=== PATIENT | female | born 1940 | race Caucasian/White ===

== ENCOUNTER 2019-08-04 13:27 | Emergency (ER) | payer MEDICARE, OTHER ==
--- NOTE | 2019-08-04 14:17 | ED ---
Lower Extremity - HPI Summary HPI Summary: This patient is a 79 year old F with a history of 3x meniscus surgery in the right knee presenting to ED with a chief complaint of right knee pain just below the knee since this last night. Patient has had increased problems with her arthritis in the last year. Patient had physical therapy for her knee last night, and she felt pain off and on during the therapy, particularly while standing up. She states the knee feels weak, like she is going to fall, and also reports that she felt popping in the knee during the PT session. She denies falling. This morning, patient reports having trouble getting out of bed. The patient rates the pain 0/10 in severity while lying on the stretcher. Symptoms aggravated by movement. Symptoms alleviated by nothing. Patient denies fever. - History of Current Complaint Chief Complaint: EDExtremityLower Stated Complaint: RIGHT KNEE PAIN Time Seen by Provider: 08/04/19 13:37 Hx Obtained From: Patient Onset of Pain: Hours - Last night Onset/Duration: Hours - Since last night Severity Initially: Mild Severity Currently: Mild Pain Intensity: 0 Pain Scale Used: 0-10 Numeric Timing: Constant, Lasting Hours - Since last night Location: Is Discrete @ - R knee Associated Signs And Symptoms: Negative: Fever Aggravating Factor(s): Movement Alleviating Factor(s): Nothing - Allergies/Home Medications Allergies/Adverse Reactions: Allergies Allergy/AdvReac Type Severity Reaction Status Date / Time No Known Allergies Allergy Verified 08/04/19 13:30 Home Medications: Home Medications Atorvastatin* [Lipitor*] 10 mg PO EVERY OTHER DAY 08/04/19 [History Confirmed ] Losartan TAB* [Cozaar TAB*] 100 mg PO DAILY 08/04/19 [History Confirmed 08/04/19 ] NIFEdipine ER TAB* [Procardia Xl TAB*] 30 mg PO DAILY 08/04/19 [History Confirmed 08/04/19] Spironolactone TAB* [Aldactone TAB*] 25 mg PO DAILY 08/04/19 [History Confirmed 08/04/19] PMH/Surg Hx/FS Hx/Imm Hx Cardiovascular History: Reports: Hx Hypercholesterolemia, Hx Hypertension Respiratory History: Reports: Hx Asthma GI History: Reports: Hx Gastroesophageal Reflux Disease Musculoskeletal History: Reports: Hx Arthritis - Cancer History Hx Chemotherapy: No Hx Radiation Therapy: No - Surgical History Surgery Procedure, Year, and Place: Nephrectomy. Left knee arthroscopy. 3x meniscus surgery in the right knee Infectious Disease History: No Infectious Disease History: Denies: Traveled Outside the [place] in Last 30 Days - Family History Known Family History: Positive: Cardiac Disease - Father had CAD, Other - Mother had breast CA - Social History Alcohol Use: Rare Hx Substance Use: No Substance Use Type: Reports: None Hx Tobacco Use: No Smoking Status (MU): Never Smoked Tobacco Review of Systems Negative: Fever Musculoskeletal: Other - Right knee pain All Other Systems Reviewed And Are Negative: Yes Physical Exam - Summary Physical Exam Summary: Constitutional: Well-developed, Well-nourished, Alert. (-) Distressed Skin: Warm, Dry HENT: Normocephalic; Atraumatic Eyes: Conjunctiva normal Neck: Musculoskeletal ROM normal neck. (-) JVD, (-) Stridor, (-) Tracheal deviation Cardio: Rhythm regular, rate normal, Heart sounds normal; Intact distal pulses; The pedal pulses are 2+ and symmetric. Radial pulses are 2+ and symmetric. Pulmonary/Chest wall: Effort normal. (-) Respiratory distress, (-) Wheezes, (-) Rales Abd: Soft, (-) tenderness, (-) Distension, (-) Guarding, (-) Rebound Musculoskeletal: Bony tenderness just at the base of the right patella and it tracks down to the proximal mid-tibia. The right patella does not seem to be high-riding, it seems to be lying in the same point symmetrically with the other leg. Valgus and varus stress on the right knee cause pain. Flexion and extension cause pain. I do not appreciate laxity, and she has ROM intact, but ranging passively and actively causes discomfort. Neuro: Alert, Oriented x3 Psych: Mood and affect Normal Triage Information Reviewed: Yes Vital Signs On Initial Exam: Initial Vitals Temp Pulse Resp BP Pulse Ox 98.3 F 86 18 173/99 96 08/04/19 13:27 08/04/19 13:27 08/04/19 13:27 08/04/19 13:27 08/04/19 13:27 Vital Signs Reviewed: Yes Procedures - Sedation Patient Received Moderate/Deep Sedation with Procedure: No Diagnostics - Vital Signs Vital Signs Temp Pulse Resp BP Pulse Ox 08/04/19 13:27 98.3 F 86 18 173/99 96 - Laboratory Lab Statement: Any lab studies that have been ordered have been reviewed, and results considered in the medical decision making process. - Radiology R knee XR Radiology Interpretation Completed By: Radiologist Summary of Radiographic Findings: #. Advanced osteoarthritis with only mild progression compared with the 2006 radiographs. #. Small joint effusion. No fracture evident. Dr. Corado has reviewed this radiology report. Re-Evaluation - Re-Evaluation First Eval Re-Evaluation Time: 15:09 Comment: Discussed results with patient. Told patient about my plan for use of knee immobilizer, but I am okay if the patient uses a wheelchair instead. Patient called her ortho and now has an appointment with Dr. Tim for tomorrow morning. Patient will be discharged home with dx of right knee sprain. Patient understands and agrees with this plan. Lower Extremity Course/Dx - Course Course Of Treatment: This patient is a 79 year old F with a history of 3x meniscus surgery in the right knee presenting to ED with a chief complaint of right knee pain just below the knee since this last night. R knee XR revealed # . Advanced osteoarthritis with only mild progression compared with the 2006 radiographs. #. Small joint effusion. No fracture evident. I will give the patient a knee immobilizer, but if she would prefer to use a wheelchair as she has chronic shoulder issues and has difficulty using crutches, I am comfortable with her removing the Velcro knee immobilizer. Patient will be discharged home with dx of right knee strain. Patient understands and agrees with this plan. Patient called their ortho and has an appt with Dr. Tim tomorrow at 0945. - Diagnoses Provider Diagnoses: Strain of right knee Discharge ED - Sign-Out/Discharge Documenting (check all that apply): Patient Departure - Discharge - Discharge Plan Condition: Stable Disposition: HOME Patient Education Materials: Knee Pain (ED), Knee Immobilizer (ED) Referrals: Leticia Barrientos MD [Primary Care Provider] - - Billing Disposition and Condition Condition: STABLE Disposition: Home - Attestation Statements Document Initiated by Scribe: Yes Documenting Scribe: Calos Joe Provider For Whom Scribe is Documenting (Include Credential): Geovanni Corado MD Scribe Attestation: I, Calos Joe, scribed for Geovanni Corado MD on 08/04/19 at 1905. Scribe Documentation Reviewed: Yes Provider Attestation: The documentation as recorded by the scribe, Calos Joe accurately reflects the service I personally performed and the decisions made by me, Geovanni Corado MD Status of Scribe Document: Viewed
[2019-08-04 15:35] VITALS: BP 154/78
== END 2019-08-04 15:35 | disposition home or self-care (01) ==
LOC: ED 13:27
DX: S86.811A Strain of other muscle(s) and tendon(s) at lower leg level, right leg, initial encounter (principal); M17.11 Unilateral primary osteoarthritis, right knee; X58.XXXA Exposure to other specified factors, initial encounter; Y92.9 Unspecified place or not applicable; E78.00 Pure hypercholesterolemia, unspecified; I10 Essential (primary) hypertension; J45.909 Unspecified asthma, uncomplicated; K21.9 Gastro-esophageal reflux disease without esophagitis; Z79.899 Other long term (current) drug therapy
CPT/HCPCS: 99282

== ENCOUNTER 2021-07-16 06:32 | Observation (INO) ==
[~2021-07-16 06:32] MED LIST: Buffered Lidocaine 1% SYRIN 1 ml INTRADERM ONE; Bupivacaine 0.5% SDV PF 30ML VIAL ONE; Dexamethasone IV 4 MG/ML VIAL 1 ml VIAL ONE; Lactated Ringers 1000 ml BAG 1,000 ML IV SCH; fentaNYL 100 mcg/2 ml 50 MCG/ML VIAL ONE
[2021-07-16] MEDS ORDERED: ceFAZolin 2 GM in NS PREMIX 2 GM/100 ML BAG IVPB ONE (06:43)
[2021-07-16] MEDS ORDERED: Ropivacaine 5 MG/ML 20 ML VIAL 0.5% (100 MG) ONE (07:01)
[2021-07-16] MEDS ORDERED: Rocuronium 50 mg VIAL 10 mg/ml 5 ml VIAL (50 mg) ONE (07:29)
[2021-07-16] MEDS ORDERED: fentaNYL 250 mcg/5 ml 50 MCG/ML 5 ml VIAL (250 MCG) ONE (07:29)
[2021-07-16] MEDS ORDERED: Lidocaine 2% PF 5 ML VIAL ONE (07:29)
[2021-07-16] MEDS ORDERED: Ondansetron 4 mg VIAL 2 MG/ML 2 ml VIAL ONE (07:29)
[2021-07-16] MEDS ORDERED: Dexamethasone IV 4 MG/ML VIAL 1 ml VIAL ONE (07:29)
[2021-07-16] MEDS ORDERED: Propofol 10 MG/ML 20 ML BTL ONE (07:29)
[2021-07-16] MEDS ORDERED: Lidocaine 1% MPF 5 ML VIAL ONE (08:00)
[2021-07-16] MEDS ORDERED: diPHENhydraMINE IV 50 MG/ML 1 ml VIAL (BENADRYL) IV PRN ×2 (08:32→08:55)
[2021-07-16] MEDS ORDERED: Naloxone 0.4 mg VIAL 0.4 mg/ml 1 ml VIAL IV PRN (08:32)
[2021-07-16] MEDS ORDERED: DiMENhydriNATE IV 50 mg/ml 1 ml VIAL IV PUSH PRN (08:32)
[2021-07-16] MEDS ORDERED: Phenylephrine 40 mcg/mL 10mL (400mcg) SYRINGE ONE (08:37)
[2021-07-16] MEDS ORDERED: Ondansetron 4 mg VIAL 2 MG/ML 2 ml VIAL IV PRN (08:55)
[2021-07-16] MEDS ORDERED: Morphine 2 MG/ML SYRINGE IV PRN (08:55)
[2021-07-16] MEDS ORDERED: Ondansetron ODT 4 mg TAB 4 MG TAB PO PRN (08:55)
[2021-07-16] MEDS ORDERED: Magnesium Hydroxide LIQ 30 ML UDC PO PRN (08:55)
[2021-07-16] MEDS ORDERED: Lactulose 30 ml UDC PO PRN (08:55)
[2021-07-16] MEDS ORDERED: diPHENhydraMINE 25 mg TAB PO PRN (08:55)
[2021-07-16] MEDS ORDERED: Lactated Ringers 1000 ml BAG 1,000 ML IV SCH (09:00)
[2021-07-16] MEDS ORDERED: EPHEDrine (Pressors) 50 MG/ML VIAL ONE (09:06)
[2021-07-16] MEDS ORDERED: HYDROmorphone 1 MG/1 ML SYRINGE ONE ×2 (09:31→10:58)
[2021-07-16] MEDS: HYDROmorphone 1 MG/1 ML SYRINGE IV PRN ×5 (11:08→12:03)
[2021-07-16] MEDS: Vitamin THERAPEUTIC TAB PO SCH (14:00)
[2021-07-16] MEDS: Magnesium Hydroxide LIQ 30 ML UDC PO SCH ×2 (14:00→20:25)
[2021-07-16] MEDS: ceFAZolin 1 GM ADVAN 1 GM in NS 0.9% 50 ML 50 ML IVPB SCH ×2 (16:47→23:58)
[2021-07-17 06:37] LABS: Hematocrit 28 % (35-47); Hemoglobin 9.3 g/dL (12.0-16.0); Mean Platelet Volume 9.6 fL (7.4-10.4); Platelet Count 173 10^3/uL (150-450)
[2021-07-17 07:05] LABS: Calcium 9.6 mg/dL (8.6-10.3); Potassium 4.5 mmol/L (3.5-5.0)
[2021-07-17] MEDS: ceFAZolin 1 GM ADVAN 1 GM in NS 0.9% 50 ML 50 ML IVPB SCH (08:52)
[2021-07-17] MEDS: Magnesium Hydroxide LIQ 30 ML UDC PO SCH ×2 (08:52→21:12)
[2021-07-17] MEDS: Vitamin THERAPEUTIC TAB PO SCH (08:53)
[2021-07-17] MEDS ORDERED: Flu vaccine *QUAD* 2021-22* 0.5 ML SYRINGE IM ONE (09:00)
[2021-07-18 07:02] LABS: Hematocrit 32 % (35-47); Hemoglobin 10.6 g/dL (12.0-16.0); Mean Platelet Volume 9.6 fL (7.4-10.4); Platelet Count 177 10^3/uL (150-450)
[2021-07-18] MEDS: Vitamin THERAPEUTIC TAB PO SCH (08:06)
[2021-07-18] MEDS: Magnesium Hydroxide LIQ 30 ML UDC PO SCH ×3 (08:06→21:34)
[2021-07-19 06:22] LABS: Hematocrit 29 % (35-47); Mean Platelet Volume 9.7 fL (7.4-10.4); Platelet Count 173 10^3/uL (150-450)
[2021-07-19] MEDS: Vitamin THERAPEUTIC TAB PO SCH (10:19)
[2021-07-19] MEDS: Magnesium Hydroxide LIQ 30 ML UDC PO SCH (10:21)
[2021-07-19 16:49] VITALS: BP 144/78
== END 2021-07-19 17:57 | disposition home or self-care (01) ==
LOC: OR 06:32 → SSU 06:32
PROVIDERS: ADMIT Orthopaedic Surgery Adult Reconstructive Orthopaedic Surgery; ATTEND Orthopaedic Surgery Adult Reconstructive Orthopaedic Surgery

== ENCOUNTER 2021-07-19 17:22 | Inpatient (IN) ==
[2021-07-22 17:16] LABS: Rapid COVID-19 Molecular Undetected (Undetected)
[2021-07-23 07:17] VITALS: BP 122/64
== END 2021-07-23 13:45 | disposition home or self-care (01) | DRG 561 ==
LOC: MCHPEDS 18:00
PROVIDERS: ADMIT Orthopaedic Surgery Adult Reconstructive Orthopaedic Surgery; ATTEND Orthopaedic Surgery Adult Reconstructive Orthopaedic Surgery

== ENCOUNTER 2021-12-26 10:18 | Observation (INO) ==
[~2021-12-26 10:18] MED LIST changes: -Bupivacaine 0.5% SDV PF 30ML VIAL ONE; -Dexamethasone IV 4 MG/ML VIAL 1 ml VIAL ONE; +HYDROmorphone 1 MG/1 ML SYRINGE IV PRN; +Ketamine HCL 50 mg/ml 10 ml VIAL (500 MG) ONE; +Lidocaine 2% PF 5 ML VIAL ONE; +Naloxone 0.4 mg VIAL 0.4 mg/ml 1 ml VIAL IV PRN; +Prochlorperazine 5 mg/ml 2 ml VIAL (10 mg) IV PRN; +Propofol 10 MG/ML 20 ML BTL ONE; +diPHENhydraMINE IV 50 MG/ML 1 ml VIAL (BENADRYL) IV PRN; -fentaNYL 100 mcg/2 ml 50 MCG/ML VIAL ONE
[2021-12-26] MEDS ORDERED: ceFAZolin 2 GM in NS PREMIX 2 GM/100 ML BAG IVPB ONE (10:41)
[2021-12-26] MEDS ORDERED: ROPIVACAINE 5 MG/ML 30 ML BTL (0.5%) ONE ×2 (11:37→13:23)
[2021-12-26] MEDS ORDERED: fentaNYL 250 mcg/5 ml 50 MCG/ML 5 ml VIAL (250 MCG) ONE (11:49)
[2021-12-26] MEDS ORDERED: Phenylephrine 40 mcg/mL 10mL (400mcg) SYRINGE ONE (13:13)
[2021-12-26] MEDS ORDERED: Propofol 10 MG/ML 20 ML BTL ONE (13:52)
[2021-12-26] MEDS ORDERED: Lactulose 30 ml UDC PO PRN (13:53)
[2021-12-26] MEDS ORDERED: Ondansetron 4 mg VIAL 2 MG/ML 2 ml VIAL IV PRN (13:53)
[2021-12-26] MEDS ORDERED: Ondansetron ODT 4 mg TAB 4 MG TAB PO PRN (13:53)
[2021-12-26] MEDS ORDERED: diPHENhydraMINE 25 mg TAB PO PRN (13:53)
[2021-12-26] MEDS ORDERED: Morphine 2 MG/ML SYRINGE IV PRN (13:53)
[2021-12-26] MEDS ORDERED: diPHENhydraMINE IV 50 MG/ML 1 ml VIAL (BENADRYL) IV PRN (13:53)
[2021-12-26] MEDS ORDERED: Magnesium Hydroxide LIQ 30 ML UDC PO PRN (13:53)
[2021-12-26] MEDS ORDERED: ceFAZolin 1 GM ADVAN 1 GM in NS 0.9% 50 ML 50 ML IVPB SCH (14:00)
[2021-12-26] MEDS: Lactated Ringers 1000 ml BAG 1,000 ML IV SCH (17:29)
[2021-12-26] MEDS: Magnesium Hydroxide LIQ 30 ML UDC PO SCH (19:55)
[2021-12-26] MEDS: ceFAZolin VIAL 1 GM in NS 0.9% 50 ML 50 ML IVPB SCH (23:47)
[2021-12-27] MEDS: ceFAZolin VIAL 1 GM in NS 0.9% 50 ML 50 ML IVPB SCH ×2 (05:00→12:56)
[2021-12-27 05:52] LABS: Hematocrit 36 % (35-47); Hemoglobin 11.7 g/dL (12.0-16.0); Mean Platelet Volume 9.1 fL (7.4-10.4); Platelet Count 205 10^3/uL (150-450)
[2021-12-27 06:17] LABS: Calcium 9.7 mg/dL (8.6-10.3); Potassium 4.2 mmol/L (3.5-5.0); eGFR CKD-EPI 58.3 (>60)
[2021-12-27] MEDS: Lactated Ringers 1000 ml BAG 1,000 ML IV SCH (07:40)
[2021-12-27] MEDS: Magnesium Hydroxide LIQ 30 ML UDC PO SCH ×2 (08:40→21:26)
[2021-12-27] MEDS: Vitamin THERAPEUTIC TAB PO SCH (08:40)
[2021-12-27] MEDS ORDERED: HYDROcodone/ACETAMIN 5/325 mg TAB PO PRN (08:55)
[2021-12-28 06:36] LABS: Hematocrit 38 % (35-47); Hemoglobin 12.3 g/dL (12.0-16.0); Mean Platelet Volume 9.9 fL (7.4-10.4); Platelet Count 148 10^3/uL (150-450)
[2021-12-28] MEDS: Magnesium Hydroxide LIQ 30 ML UDC PO SCH (08:48)
[2021-12-28] MEDS: Vitamin THERAPEUTIC TAB PO SCH (08:48)
[2021-12-28 11:10] VITALS: BP 147/58
== END 2021-12-28 13:24 | disposition home or self-care (01) ==
LOC: SSU 10:18 → OR 10:18
PROVIDERS: ADMIT Orthopaedic Surgery Adult Reconstructive Orthopaedic Surgery; ATTEND Orthopaedic Surgery Adult Reconstructive Orthopaedic Surgery

== ENCOUNTER 2024-02-11 19:48 | Inpatient (IN) ==
[2024-02-11 21:24] LABS: ABS Basophils 0.1 10^3/uL (0.0-0.1); ABS Eosinophils 0.2 10^3/uL (0.0-0.5); ABS Lymphocytes 1.2 10^3/uL (1.0-4.8); ABS Monocytes 1.4 10^3/uL (0.0-0.9); ABS Neutrophils 5.4 10^3/uL (1.5-7.6); Eosinophil % 2.1 %; Hematocrit 37.9 % (35-45); Hemoglobin 12.6 g/dL (11.5-14.3); Lymphocyte % 14.9 %; Mean Corpuscular Hemoglobin 28.1 pg (27-33); Mean Corpuscular Hgb Conc 33.3 g/dL (31-36); Mean Corpuscular Volume 84.5 fL (80-97); Mean Platelet Volume 9.9 fL (7.5-11.2); Platelet Count 201 10^3/uL (150-450); Red Blood Count 4.49 10^6/uL (3.63-4.92); Red Cell Distribution Width 15.6 % (12-17); White Blood Count 8.2 10^3/uL (3.8-11.8)
[2024-02-11 21:32] LABS: INR 1.17 (0.83-1.13)
[2024-02-11 21:41] LABS: Albumin 3.9 g/dL (3.2-5.2); Albumin/Globulin Ratio 1.8 (1-3); Calcium 9.9 mg/dL (8.6-10.3); Creatinine, Serum 0.92 mg/dL (0.51-0.95); Globulin 2.2 g/dL (2-4); Potassium 4.1 mmol/L (3.5-5.0); Total Bilirubin 0.3 mg/dL (0.2-1.0); Total Protein 6.1 g/dL (6.4-8.9); eGFR CKD-EPI 62.2 (>60)
[2024-02-11] MEDS ORDERED: Morphine 4 MG/ML VIAL (1 ml) ONE ×2 (23:21→23:23)
[2024-02-11] MEDS: Morphine 4 MG/ML VIAL (1 ml) IV ONE (23:47)
[2024-02-12] MEDS ORDERED: NON FORMULARY MED (Acetaminophen 500 mg Tablet) PO PRN (00:03)
[2024-02-12 13:13] LABS: Urine Appearance Clear; Urine Bilirubin Negative (Negative); Urine Blood Trace (Negative); Urine Color Light-Yellow; Urine Glucose Negative (Negative); Urine Ketones Negative (Negative); Urine Nitrite Negative (Negative); Urine Protein Negative (Negative); Urine Specific Gravity 1.019 (1.002-1.030); Urine Urobilinogen Negative (Negative); Urine pH 5.5 (5.0-8.0)
[2024-02-13] MEDS: Morphine 2 MG/ML SYRINGE IV ONE (03:22)
[2024-02-13] MEDS: Enoxaparin 40 MG/0.4 ML SYR SUBCUT SCH (08:37)
[2024-02-14 06:13] LABS: ABS Basophils 0.1 10^3/uL (0.0-0.1); ABS Eosinophils 0.1 10^3/uL (0.0-0.5); ABS Lymphocytes 0.9 10^3/uL (1.0-4.8); ABS Monocytes 1.3 10^3/uL (0.0-0.9); ABS Neutrophils 5.2 10^3/uL (1.5-7.6); Hematocrit 35.3 % (35-45); Hemoglobin 11.6 g/dL (11.5-14.3); Lymphocyte % 12.4 %; Mean Corpuscular Hemoglobin 27.8 pg (27-33); Mean Corpuscular Volume 84.1 fL (80-97); Mean Platelet Volume 9.2 fL (7.5-11.2); Platelet Count 183 10^3/uL (150-450); Red Blood Count 4.19 10^6/uL (3.63-4.92); Red Cell Distribution Width 15.6 % (12-17); White Blood Count 7.6 10^3/uL (3.8-11.8)
[2024-02-14 06:49] LABS: Calcium 9.5 mg/dL (8.6-10.3); Creatinine, Serum 0.88 mg/dL (0.51-0.95); Potassium 3.9 mmol/L (3.5-5.0); eGFR CKD-EPI 65.6 (>60)
[2024-02-14] MEDS ORDERED: Magnesium Hydroxide LIQ 30 ML UDC PO PRN (12:19)
[2024-02-14] MEDS ORDERED: Senna TAB 8.6 mg TAB PO PRN (12:19)
[2024-02-15 06:01] LABS: ABS Eosinophils 0.1 10^3/uL (0.0-0.5); ABS Monocytes 1.2 10^3/uL (0.0-0.9); ABS Neutrophils 6.2 10^3/uL (1.5-7.6); Eosinophil % 1.7 %; Hematocrit 35.1 % (35-45); Hemoglobin 11.6 g/dL (11.5-14.3); Lymphocyte % 11.9 %; Mean Corpuscular Hemoglobin 27.9 pg (27-33); Mean Corpuscular Hgb Conc 33.1 g/dL (31-36); Mean Corpuscular Volume 84.3 fL (80-97); Mean Platelet Volume 9.5 fL (7.5-11.2); Platelet Count 194 10^3/uL (150-450); Red Blood Count 4.17 10^6/uL (3.63-4.92); Red Cell Distribution Width 15.1 % (12-17); White Blood Count 8.6 10^3/uL (3.8-11.8)
[2024-02-16 05:57] LABS: Calcium 9.6 mg/dL (8.6-10.3); Creatinine, Serum 0.77 mg/dL (0.51-0.95); Potassium 4.3 mmol/L (3.5-5.0)
[2024-02-16] MEDS ORDERED: Bupivacaine 0.25% SDV 30 ML ONE (11:34)
[2024-02-16] MEDS ORDERED: ceFAZolin 2 GM in NS PREMIX 2 GM/100 ML BAG IVPB ONE (14:17)
[2024-02-16] MEDS ORDERED: Propofol 10 MG/ML 20 ML BTL ONE (14:38)
[2024-02-16] MEDS ORDERED: Phenylephrine 40 mcg/mL 10mL (400mcg) SYRINGE ONE (14:38)
[2024-02-16] MEDS: Lactated Ringers 1000 ml BAG 1,000 ML IV SCH (16:22)
[2024-02-16] MEDS: Enoxaparin 40 MG/0.4 ML SYR SUBCUT SCH (21:01)
[2024-02-16] MEDS: ceFAZolin 2 GM in NS PREMIX 2 GM/100 ML BAG IVPB SCH (22:45)
[2024-02-17 06:02] LABS: Hematocrit 35.6 % (35-45); Hemoglobin 11.8 g/dL (11.5-14.3); Mean Corpuscular Hgb Conc 33.2 g/dL (31-36); Mean Corpuscular Volume 84.6 fL (80-97); Mean Platelet Volume 9.3 fL (7.5-11.2); Platelet Count 199 10^3/uL (150-450); Red Blood Count 4.21 10^6/uL (3.63-4.92); Red Cell Distribution Width 14.9 % (12-17); White Blood Count 10.4 10^3/uL (3.8-11.8)
[2024-02-17 06:19] LABS: Calcium 9.4 mg/dL (8.6-10.3); Creatinine, Serum 0.84 mg/dL (0.51-0.95); Potassium 4.6 mmol/L (3.5-5.0); eGFR CKD-EPI 69.3 (>60)
[2024-02-17 06:59] LABS: ABS Eosinophils 0.1 10^3/uL (0.0-0.5); ABS Lymphocytes 0.7 10^3/uL (1.0-4.8); ABS Monocytes 1.7 10^3/uL (0.0-0.9); ABS Neutrophils 7.8 10^3/uL (1.5-7.6); ABS Nucleated RBC 0.01 10^3/ul; Lymphocyte % 6.7 %; Nucleated Red Blood Cells % 0.1 %/100WBC (0.0-0.8)
[2024-02-18 09:01] LABS: Rapid COVID-19 Molecular Undetected (Undetected)
[2024-02-18 10:56] VITALS: BP 139/60
== END 2024-02-18 13:59 | DRG 494 ==
LOC: EDHOLD 19:48 → ED 19:48 → SUATTDRO 02-12 00:04 → MED 02-12 03:07 → SSU 02-16 14:02
PROVIDERS: ADMIT Hospitalist; ATTEND Internal Medicine

== ENCOUNTER 2024-03-14 10:56 | Inpatient (IN) ==
[2024-03-14 11:46] LABS: Hemoglobin 7.5 g/dL (11.5-14.3)
[2024-03-14] MEDS: Pantoprazole 80 mg in NS BAG 80 MG/250 ML BAG IV SCH (13:54)
[2024-03-14] MEDS: cefTRIAXone 1 gm/50 mL D5W 1 GM/50 ML BAG IV SCH (14:02)
[2024-03-14] MEDS: Lactated Ringers 1000 ml BAG 1,000 ML IV ONE (14:02)
[2024-03-14] MEDS: Pantoprazole 80 mg in NS BAG 80 MG/250 ML BAG IV ONE (14:26)
[2024-03-14] MEDS ORDERED: Dextrose 50% Syringe 50 ml 25 GM/50 ML SYRINGE IV PUSH PRN (14:48)
[2024-03-14] MEDS: SODIUM ZIRCONIUM CYCLOSILICATE 10 GM PACKET PO ONE (17:42)
[2024-03-14 18:51] LABS: ABS Basophils 0.1 10^3/uL (0.0-0.1); ABS Eosinophils 0.1 10^3/uL (0.0-0.5); ABS Lymphocytes 1.1 10^3/uL (1.0-4.8); ABS Monocytes 1.4 10^3/uL (0.0-0.9); ABS Neutrophils 11.4 10^3/uL (1.5-7.6); Eosinophil % 0.9 %; Hematocrit 23.2 % (35-45); Hemoglobin 7.4 g/dL (11.5-14.3); Mean Corpuscular Hemoglobin 27.3 pg (27-33); Mean Corpuscular Hgb Conc 31.6 g/dL (31-36); Mean Corpuscular Volume 86.4 fL (80-97); Platelet Count 278 10^3/uL (150-450); Red Blood Count 2.69 10^6/uL (3.63-4.92); Red Cell Distribution Width 16.4 % (12-17); White Blood Count 14.1 10^3/uL (3.8-11.8)
[2024-03-14 19:16] LABS: Calcium 9.4 mg/dL (8.6-10.3); Creatinine, Serum 2.16 mg/dL (0.51-0.95); Potassium 5.2 mmol/L (3.5-5.0); eGFR CKD-EPI 22.3 (>60)
[2024-03-15 05:49] LABS: ABS Eosinophils 0.1 10^3/uL (0.0-0.5); ABS Lymphocytes 1.1 10^3/uL (1.0-4.8); ABS Neutrophils 7.7 10^3/uL (1.5-7.6); Eosinophil % 1.4 %; Hematocrit 23.2 % (35-45); Hemoglobin 7.4 g/dL (11.5-14.3); Lymphocyte % 11.2 %; Mean Corpuscular Hemoglobin 27.6 pg (27-33); Mean Corpuscular Hgb Conc 31.9 g/dL (31-36); Mean Corpuscular Volume 86.7 fL (80-97); Mean Platelet Volume 9.2 fL (7.5-11.2); Platelet Count 244 10^3/uL (150-450); Red Blood Count 2.68 10^6/uL (3.63-4.92); Red Cell Distribution Width 16.4 % (12-17); White Blood Count 9.9 10^3/uL (3.8-11.8)
[2024-03-15 06:07] LABS: Albumin 3.3 g/dL (3.2-5.2); Albumin/Globulin Ratio 1.8 (1-3); Calcium 8.6 mg/dL (8.6-10.3); Creatinine, Serum 2.49 mg/dL (0.51-0.95); Globulin 1.8 g/dL (2-4); Magnesium 2.4 mg/dL (1.9-2.7); Potassium 5.4 mmol/L (3.5-5.0); Total Bilirubin 0.3 mg/dL (0.2-1.0); Total Protein 5.1 g/dL (6.4-8.9); eGFR CKD-EPI 18.8 (>60)
[2024-03-15] MEDS: SODIUM ZIRCONIUM CYCLOSILICATE 10 GM PACKET PO ONE (09:14)
[2024-03-15 09:35] LABS: C Reactive Protein 23.33 mg/L (<8.01)
[2024-03-15] MEDS: Sodium Polystyrene RECTAL 30 GM/120 ML RECTAL.SUS PR ONE (10:33)
[2024-03-15] MEDS: Lactated Ringers 1000 ml BAG 1,000 ML IV SCH (12:32)
[2024-03-15] MEDS: cefTRIAXone 1 gm/50 mL D5W 1 GM/50 ML BAG IV SCH (14:00)
[2024-03-15 14:04] LABS: Anion Gap 11 mmol/L (2-16); Blood Urea Nitrogen 59 mg/dL (6-24); CO2 Carbon Dioxide 20 mmol/L (22-32); Calcium 9.2 mg/dL (8.6-10.3); Chloride 106 mmol/L (101-111); Creatinine, Serum 2.16 mg/dL (0.51-0.95); Glucose 104 mg/dL (70-100); Sodium 137 mmol/L (135-145); eGFR CKD-EPI 22.3 (>60)
[2024-03-15] MEDS ORDERED: Midazolam 10 mg/10 ml VIAL 1 mg/ml 10 ml VIAL (10 mg) ONE (15:07)
[2024-03-15] MEDS ORDERED: fentaNYL 100 mcg/2 ml 50 MCG/ML VIAL ONE (15:07)
[2024-03-15] MEDS: Sodium Polystyrene ORAL.SUSP 15 GM/60 ML BTL PR ONE (18:37)
[2024-03-15] MEDS: Ondansetron 4 mg VIAL 2 MG/ML 2 ml VIAL IV PRN (21:14)
[2024-03-15 22:48] LABS: Creatinine, Serum 1.56 mg/dL (0.51-0.95); Potassium 4.6 mmol/L (3.5-5.0)
[2024-03-16] MEDS: Prochlorperazine 5 mg/ml 2 ml VIAL (10 mg) IV ONE ×2 (01:30→10:29)
[2024-03-16 04:26] LABS: Urine Appearance Turbid; Urine Bilirubin Negative (Negative); Urine Blood Negative (Negative); Urine Color Light-Yellow; Urine Glucose Negative (Negative); Urine Ketones 1+ (Negative); Urine Nitrite Negative (Negative); Urine Protein Trace (Negative); Urine Specific Gravity 1.016 (1.002-1.030); Urine Urobilinogen Negative (Negative); Urine pH 5.5 (5.0-8.0)
[2024-03-16 05:16] LABS: Urine Bacteria Absent /HPF (Absent); Urine Red Blood Cell Trace(0-2/hpf) /HPF (0-Trace); Urine White Blood Cell 3+(>20/hpf) /HPF (0-Trace)
[2024-03-16 06:34] LABS: Hematocrit 21.5 % (35-45); Hemoglobin 7.1 g/dL (11.5-14.3); Mean Corpuscular Hemoglobin 28.1 pg (27-33); Mean Corpuscular Volume 85.2 fL (80-97); Mean Platelet Volume 9.1 fL (7.5-11.2); Platelet Count 224 10^3/uL (150-450); Red Blood Count 2.52 10^6/uL (3.63-4.92); White Blood Count 9.2 10^3/uL (3.8-11.8)
[2024-03-16 06:50] LABS: Anion Gap 7 mmol/L (2-16); Blood Urea Nitrogen 46 mg/dL (6-24); CO2 Carbon Dioxide 25 mmol/L (22-32); Calcium 9.1 mg/dL (8.6-10.3); Chloride 106 mmol/L (101-111); Creatinine, Serum 1.38 mg/dL (0.51-0.95); Glucose 128 mg/dL (70-100); Potassium 4.6 mmol/L (3.5-5.0); Sodium 138 mmol/L (135-145); eGFR CKD-EPI 38.2 (>60)
[2024-03-16 10:40] LABS: % Iron Saturation 6 % (15-55); .Transferrin 240 mg/dL (203-362); Iron < 20 ug/dL (50-212); Total Iron Binding Capacity 336 mcg/dL (250-450); Unsaturated Iron Binding 316 ug/dL
[2024-03-16 10:59] LABS: Ferritin 28.4 ng/mL (11-307)
[2024-03-16 12:58] LABS: Hematocrit 21.9 % (35-45); Hemoglobin 6.9 g/dL (11.5-14.3)
[2024-03-16 20:43] LABS: Hematocrit 24.2 % (35-45)
[2024-03-17 06:43] LABS: Hematocrit 25.1 % (35-45); Hemoglobin 8.4 g/dL (11.5-14.3); Mean Corpuscular Hemoglobin 28.1 pg (27-33); Mean Corpuscular Hgb Conc 33.3 g/dL (31-36); Mean Corpuscular Volume 84.2 fL (80-97); Mean Platelet Volume 9.2 fL (7.5-11.2); Platelet Count 210 10^3/uL (150-450); Red Blood Count 2.98 10^6/uL (3.63-4.92); Red Cell Distribution Width 15.4 % (12-17); White Blood Count 8.2 10^3/uL (3.8-11.8)
[2024-03-17 07:05] LABS: Calcium 9.1 mg/dL (8.6-10.3); Potassium 4.6 mmol/L (3.5-5.0); eGFR CKD-EPI 56.2 (>60)
[2024-03-17] MEDS: Prochlorperazine 5 mg/ml 2 ml VIAL (10 mg) IV ONE (10:45)
[2024-03-17] MEDS: Iron Sucrose 200 MG in NS 0.9% 100 ml BAG 100 ML IVPB ONE (12:30)
[2024-03-18 06:28] LABS: Hematocrit 24.8 % (35-45); Hemoglobin 8.1 g/dL (11.5-14.3); Mean Corpuscular Hemoglobin 27.5 pg (27-33); Mean Corpuscular Hgb Conc 32.5 g/dL (31-36); Mean Corpuscular Volume 84.4 fL (80-97); Mean Platelet Volume 9.3 fL (7.5-11.2); Platelet Count 176 10^3/uL (150-450); Red Blood Count 2.93 10^6/uL (3.63-4.92); Red Cell Distribution Width 15.6 % (12-17); White Blood Count 8.5 10^3/uL (3.8-11.8)
[2024-03-18] MEDS: Iron Sucrose 200 MG in NS 0.9% 100 ml BAG 100 ML IVPB ONE (12:54)
[2024-03-19 06:10] LABS: Hematocrit 23.4 % (35-45); Hemoglobin 7.9 g/dL (11.5-14.3); Mean Corpuscular Hemoglobin 28.2 pg (27-33); Mean Corpuscular Hgb Conc 33.7 g/dL (31-36); Mean Corpuscular Volume 83.8 fL (80-97); Mean Platelet Volume 8.9 fL (7.5-11.2); Platelet Count 168 10^3/uL (150-450); Red Blood Count 2.79 10^6/uL (3.63-4.92); Red Cell Distribution Width 15.6 % (12-17); White Blood Count 10.7 10^3/uL (3.8-11.8)
[2024-03-20] MEDS: Iron Sucrose 200 MG in NS 0.9% 100 ml BAG 100 ML IVPB ONE (09:36)
[2024-03-20 11:04] VITALS: BP 110/39
== END 2024-03-20 11:40 | disposition home or self-care (01) | DRG 378 ==
LOC: ED 10:56 → EDHOLD 13:07 → SUATTDRO 13:07 → INTOOBSV 13:07 → MEDTELE 14:54 → SUATTDRO 03-16 13:04
PROVIDERS: ADMIT Hospitalist; ATTEND Internal Medicine